=== PATIENT | male | born 1990 | race African-American/Black ===

== ENCOUNTER 2017-12-19 04:40 | Emergency (ER) | payer OTHER ==
[2017-12-19] MEDS ORDERED: HALOPERIDOL 5 MG INJ IM (05:30)
[2017-12-19] MEDS: LORAZEPAM 2 MG INJ IM (06:10)
== END 2017-12-19 06:55 | disposition home or self-care (01) ==
LOC: E/R 06:55
DX: F15.129 Other stimulant abuse with intoxication, unspecified (principal); L02.31 Cutaneous abscess of buttock
CPT/HCPCS: 74018; 99284-25

== ENCOUNTER 2017-12-21 14:42 | Emergency (ER) | payer OTHER ==
[2017-12-21] MEDS: LIDOCAINE 1% (MDV) 20 ML INJ SC (15:32)
[2017-12-21] MEDS: CEPHALEXIN 500 MG CAP PO (15:52)
[2017-12-21] MEDS: TRIMETHOPRIM/SULFAMETHOX (DS) TAB PO (15:52)
== END 2017-12-21 16:53 | disposition home or self-care (01) ==
LOC: FTE 14:42
DX: L02.31 Cutaneous abscess of buttock (principal)
CPT/HCPCS: 10060; 99284-25

== ENCOUNTER 2017-12-23 08:18 | Emergency (ER) | payer OTHER ==
[2017-12-23] MEDS: CEPHALEXIN 500 MG CAP PO (09:11)
[2017-12-23] MEDS: TRIMETHOPRIM/SULFAMETHOX (DS) TAB PO (09:11)
== END 2017-12-23 09:15 | disposition home or self-care (01) ==
LOC: FTE 08:18
DX: Z48.01 Encounter for change or removal of surgical wound dressing (principal)
CPT/HCPCS: 99284; Z7502